=== PATIENT | male | born 1985 | race Caucasian/White ===

== ENCOUNTER 2021-04-18 09:04 | Emergency (ER) | payer SELFPAY ==
[~2021-04-18] VITALS: Ht 177.8 cm; Wt 95.4 kg
[2021-04-18 09:09] VITALS: BP 147/89
--- NOTE | 2021-04-18 09:30 | NUR ---
pt sent to ED from for c/o potential tonsillar abscess. pt states head cold for approx. 1 week and now feeling pain bilaterally in throat/tonsils. pt denies N/V/D or fever. pt a&o, resps even and unlabored, vss, nadn. call light in reach.
--- NOTE | 2021-04-18 09:37 | NUR ---
akira Gaxiola at bedside for initial eval/assessment.
[2021-04-18] MEDS ORDERED: DEXAMETHASONE 4 MG/ML, 1ML PO ONE (10:00)
[2021-04-18] MEDS ORDERED: DEXAMETHASONE 4 MG/ML, 1ML ONE (10:02)
--- NOTE | 2021-04-18 10:08 | NUR ---
pt medicated per order, tolerated well. pt a&o, resps even and unlabored, vss, nadn.
[2021-04-18] MEDS ORDERED: PLEASE ENTER ALLERGIES MC SCH (10:30)
[2021-04-18] MEDS ORDERED: DEXAMETHASONE 4 MG/ML, 5ML PO ONE (11:00)
--- NOTE | 2021-04-18 11:00 | NUR ---
pt educated on dc, verbalized udnertsanding. ambulatory to dc desk with steady gait.
== END 2021-04-18 11:02 | disposition home or self-care (01) ==
LOC: ED 10:52
DX: J36 Peritonsillar abscess (principal); I10 Essential (primary) hypertension
CPT/HCPCS: 99283; J1100

== ENCOUNTER 2021-05-15 09:10 | Inpatient (IN) | payer BC ==
[~2021-05-15] VITALS: Ht 177.8 cm; Wt 93.0 kg
--- NOTE | 2021-05-15 09:13 | NUR ---
CALLED FOR PT. PT NOT IN LOBBY
--- NOTE | 2021-05-15 09:44 | NUR ---
Dr Galeano at bedside for evaluation.
--- NOTE | 2021-05-15 09:50 | NUR ---
Cultures taken by dr weiss.
[2021-05-15] MEDS ORDERED: SODIUM CHLORIDE FLUSH 10ML SYR IVF ONE (10:00)
--- NOTE | 2021-05-15 10:00 | NUR ---
IV started, labs drawn from IV. AIDET provided. Pt in NAD.
[2021-05-15 10:08] LABS: BASOPHILS % (AUTO) 0 % (0-1); EOSINOPHILS % (AUTO) 0 % (1-7); LYMPHOCYTES % (AUTO) 13 % (22-44); MEAN CORPUSCULAR HEMOGLOBIN 29.9 pg (27.5-34.5); MEAN CORPUSCULAR HGB CONC 33.4 g/dL (33.2-36.2); MEAN PLATELET VOLUME 7.9 fL (7.4-10.4); MONOCYTES % (AUTO) 11 % (2-9); NEUTROPHILS % (AUTO) 75 % (42-75); PLATELET COUNT 235 x10^3/uL (130-400); RED BLOOD COUNT 5.11 x10^6/uL (4.38-5.82); RED CELL DISTRIBUTION WIDTH 12.7 % (9.4-14.8)
[2021-05-15 10:21] LABS: ALANINE AMINOTRANSFERASE 90 U/L (12-78); ALKALINE PHOSPHATASE 90 U/L (45-117); ANION GAP 6 mmol/L (5-15); BILIRUBIN,TOTAL 0.3 mg/dL (0.2-1.0); CALCIUM 9.7 mg/dL (8.5-10.1); CHLORIDE 103 mmol/L (98-107); CREATININE 0.99 mg/dL (0.7-1.3); TOTAL PROTEIN 8.7 g/dL (6.4-8.2)
[2021-05-15] MEDS ORDERED: OMNIPAQUE 350 MG/ML, 100ML BOTTLE ONE (10:44)
--- NOTE | 2021-05-15 10:49 | NUR ---
Back from CT, no change in assessment. AIDET provided.
[2021-05-15] MEDS ORDERED: DEXAMETHASONE 4 MG/ML, 1ML IVPush ONE (11:30)
[2021-05-15] MEDS ORDERED: AMPICILLIN/SULBACTAM 3 GM in SODIUM CHLORIDE 0.9% 100 ML IV ONE (11:30)
[2021-05-15] MEDS ORDERED: DEXAMETHASONE 4 MG/ML, 1ML ONE (11:34)
--- NOTE | 2021-05-15 11:51 | NUR ---
IV per order, waiting for medical bed. Pt agrees with POC and admission. AIDET
[2021-05-15] MEDS ORDERED: LISI-170 PO (11:52)
--- NOTE | 2021-05-15 11:56 | NUR ---
ENT evaluating pt now.
[2021-05-15] MEDS ORDERED: hydrALAzine 20 MG/ML, 1ML ONE (12:15)
[2021-05-15] MEDS: hydrALAzine 20 MG/ML, 1ML IVPush PRN ×2 (12:17→12:21)
--- NOTE | 2021-05-15 12:18 | NUR ---
Also takes citalapram 40mg po hs.
--- NOTE | 2021-05-15 12:21 | NUR ---
Hydralazine held 2nd to normalized b/p, pt c/o 6/10 pain but refuses any pain medications. Hospitalist was at bedside for orders. Held lovenox as unlcear when pt going to surgery. KATHRINEET
[2021-05-15] MEDS: ENOXAPARIN 40 MG/0.4 ML SQ SCH (12:22)
[2021-05-15] MEDS ORDERED: BISACODYL 10 MG SUPP PR PRN (12:30)
[2021-05-15] MEDS ORDERED: ACETAMINOPHEN 325 MG TABLET PO PRN (12:30)
[2021-05-15] MEDS ORDERED: ONDANSETRON 2MG/ML, 2ML IVPush PRN (12:30)
[2021-05-15] MEDS ORDERED: morphine SULFATE 10 MG/ML, 1ML IVPush PRN (12:30)
[2021-05-15] MEDS ORDERED: IBUPROFEN 800 MG TABLET PO PRN (12:30)
[2021-05-15] MEDS ORDERED: POLYETHYLENE GLYCOL 17 GM PACKET PO PRN (12:30)
[2021-05-15] MEDS ORDERED: LABETALOL 5MG/ML, 20ML IVPush PRN (12:30)
[2021-05-15] MEDS ORDERED: ENALAPRILAT 1.25 MG/ML, 2ML IVPush PRN (12:30)
[2021-05-15] MEDS ORDERED: DOCUSATE 100 MG CAPSULE PO PRN (12:30)
[2021-05-15] MEDS ORDERED: ONDANSETRON ODT 4 MG PO PRN (12:30)
[2021-05-15] MEDS ORDERED: CITA40TA5 PO (12:34)
[2021-05-15] MEDS: HYDROcodone/APAP 5/325 TABLET PO PRN (15:48)
[2021-05-15 15:51] VITALS: BP 139/83
[2021-05-15] MEDS: AMPICILLIN/SULBACTAM 3 GM in SODIUM CHLORIDE 0.9% 100 ML IV SCH (18:00)
[2021-05-15 21:52] VITALS: BP 137/84
[2021-05-15] MEDS: CITALOPRAM 20 MG TABLET PO SCH (22:44)
[2021-05-15] MEDS: LISINOPRIL 20 MG TABLET PO SCH (22:44)
[2021-05-15] MEDS: FAMOTIDINE 20 MG/2 ML IVPush SCH (22:45)
[2021-05-16] MEDS: AMPICILLIN/SULBACTAM 3 GM in SODIUM CHLORIDE 0.9% 100 ML IV SCH ×5 (00:37→23:38)
[2021-05-16 02:36] VITALS: BP 126/68
[2021-05-16] MEDS: HYDROcodone/APAP 5/325 TABLET PO PRN (02:44)
[2021-05-16 06:01] LABS: BASOPHILS % (AUTO) 0 % (0-1); EOSINOPHILS % (AUTO) 0 % (1-7); LYMPHOCYTES % (AUTO) 13 % (22-44); MEAN CORPUSCULAR HEMOGLOBIN 29.6 pg (27.5-34.5); MEAN CORPUSCULAR HGB CONC 33.1 g/dL (33.2-36.2); MEAN PLATELET VOLUME 8.2 fL (7.4-10.4); MONOCYTES % (AUTO) 9 % (2-9); NEUTROPHILS % (AUTO) 78 % (42-75); PLATELET COUNT 246 x10^3/uL (130-400); RED CELL DISTRIBUTION WIDTH 12.7 % (9.4-14.8)
[2021-05-16 06:10] LABS: ANION GAP 6 mmol/L (5-15); CALCIUM 9.4 mg/dL (8.5-10.1); CHLORIDE 102 mmol/L (98-107); CREATININE 0.87 mg/dL (0.7-1.3)
[2021-05-16 08:08] VITALS: BP 122/67
[2021-05-16] MEDS: FAMOTIDINE 20 MG/2 ML IVPush SCH (08:41)
[2021-05-16] MEDS ORDERED: DEXAMETHASONE 4 MG/ML, 1ML IVPush ONE (09:00)
[2021-05-16] MEDS: ENOXAPARIN 40 MG/0.4 ML SQ SCH ×2 (12:05→22:10)
[2021-05-16 13:08] VITALS: BP 129/76
[2021-05-16 13:16] LABS: ALANINE AMINOTRANSFERASE 85 U/L (12-78); ALBUMIN 3.6 g/dL (3.4-5.0)
[2021-05-16 13:18] LABS: ALKALINE PHOSPHATASE 88 U/L (45-117); BILIRUBIN,TOTAL 0.2 mg/dL (0.2-1.0); TOTAL PROTEIN 8.1 g/dL (6.4-8.2)
[2021-05-16 13:19] LABS: BILIRUBIN, DIRECT < 0.1 mg/dL (0.1-0.2); BILIRUBIN,INDIRECT 0.1 mg/dL (0.0-2.0)
[2021-05-16] MEDS ORDERED: PICC FLUSH PROTOCOL XX PRN (15:30)
[2021-05-16] MEDS ORDERED: AMPICILLIN/SULBACTAM 3 GM in SODIUM CHLORIDE 0.9% 100 ML IV SCH (18:00)
[2021-05-16 19:05] VITALS: BP 126/52
[2021-05-16] MEDS: CITALOPRAM 20 MG TABLET PO SCH (22:10)
[2021-05-16] MEDS: FAMOTIDINE 20 MG TABLET PO SCH (22:10)
[2021-05-16] MEDS: LISINOPRIL 20 MG TABLET PO SCH (22:10)
[2021-05-17 00:57] VITALS: BP 119/62
[2021-05-17] MEDS: AMPICILLIN/SULBACTAM 3 GM in SODIUM CHLORIDE 0.9% 100 ML IV SCH (05:26)
[2021-05-17 05:43] LABS: BASOPHILS % (AUTO) 0 % (0-1); EOSINOPHILS % (AUTO) 0 % (1-7); LYMPHOCYTES % (AUTO) 21 % (22-44); MEAN CORPUSCULAR HEMOGLOBIN 29.7 pg (27.5-34.5); MEAN CORPUSCULAR HGB CONC 33.4 g/dL (33.2-36.2); MEAN PLATELET VOLUME 8.2 fL (7.4-10.4); MONOCYTES % (AUTO) 8 % (2-9); NEUTROPHILS % (AUTO) 71 % (42-75); PLATELET COUNT 244 x10^3/uL (130-400); RED BLOOD COUNT 4.62 x10^6/uL (4.38-5.82); RED CELL DISTRIBUTION WIDTH 12.7 % (9.4-14.8)
[2021-05-17 05:50] LABS: ALANINE AMINOTRANSFERASE 76 U/L (12-78); ALBUMIN 3.1 g/dL (3.4-5.0); ANION GAP 5 mmol/L (5-15); CALCIUM 8.9 mg/dL (8.5-10.1); CHLORIDE 103 mmol/L (98-107); CREATININE 0.83 mg/dL (0.7-1.3)
[2021-05-17 05:53] LABS: ALKALINE PHOSPHATASE 65 U/L (45-117); BILIRUBIN,TOTAL 0.2 mg/dL (0.2-1.0); TOTAL PROTEIN 7.3 g/dL (6.4-8.2)
[2021-05-17 07:40] VITALS: BP 142/73
[2021-05-17] MEDS: FAMOTIDINE 20 MG TABLET PO SCH ×2 (09:00→21:14)
[2021-05-17] MEDS: ERTAPENEM 1 GM in SODIUM CHLORIDE 0.9% 50 ML IV SCH ×2 (11:35→12:34)
[2021-05-17 12:06] VITALS: BP 138/83
[2021-05-17 20:12] VITALS: BP 116/70
[2021-05-17] MEDS: LISINOPRIL 20 MG TABLET PO SCH (21:14)
[2021-05-17] MEDS: ENOXAPARIN 40 MG/0.4 ML SQ SCH (21:15)
[2021-05-17] MEDS: CITALOPRAM 20 MG TABLET PO SCH (21:15)
[2021-05-18 01:58] VITALS: BP 116/67
[2021-05-18 06:07] LABS: BASOPHILS % (AUTO) 1 % (0-1); EOSINOPHILS % (AUTO) 1 % (1-7); LYMPHOCYTES % (AUTO) 45 % (22-44); MEAN CORPUSCULAR HEMOGLOBIN 30.1 pg (27.5-34.5); MEAN PLATELET VOLUME 7.7 fL (7.4-10.4); MONOCYTES % (AUTO) 10 % (2-9); NEUTROPHILS % (AUTO) 43 % (42-75); PLATELET COUNT 243 x10^3/uL (130-400); RED BLOOD COUNT 4.78 x10^6/uL (4.38-5.82); RED CELL DISTRIBUTION WIDTH 12.9 % (9.4-14.8)
[2021-05-18 06:15] LABS: ANION GAP 6 mmol/L (5-15); CHLORIDE 104 mmol/L (98-107)
[2021-05-18 06:16] LABS: CREATININE 0.84 mg/dL (0.7-1.3)
[2021-05-18 07:30] VITALS: BP 110/67
[2021-05-18] MEDS ORDERED: IBUP-1223 PO (09:06)
[2021-05-18] MEDS: FAMOTIDINE 20 MG TABLET PO SCH (09:37)
[2021-05-18] MEDS: ERTAPENEM 1 GM in SODIUM CHLORIDE 0.9% 50 ML IV SCH (09:37)
[2021-05-18 12:34] VITALS: BP 131/74
== END 2021-05-18 12:45 | disposition home or self-care (01) | DRG 153 ==
LOC: ED 09:19 → 4NE 12:03
PROVIDERS: ADMIT Family Medicine; ATTEND Family Medicine
PROC: 02HV33Z Insertion of Infusion Device into Superior Vena Cava, Percutaneous Approach (ICD-10-PCS; principal; 2021-05-16)
PROC: B548ZZA Ultrasonography of Superior Vena Cava, Guidance (ICD-10-PCS; 2021-05-16)
DX: J36 Peritonsillar abscess (principal); E87.1 Hypo-osmolality and hyponatremia; R65.10 Systemic inflammatory response syndrome (SIRS) of non-infectious origin without acute organ dysfunction; F41.8 Other specified anxiety disorders; G47.33 Obstructive sleep apnea (adult) (pediatric); J35.01 Chronic tonsillitis; J03.90 Acute tonsillitis, unspecified; Z20.822 Contact with and (suspected) exposure to COVID-19; I10 Essential (primary) hypertension; Z91.013 Allergy to seafood
CPT/HCPCS: 36415; 36573; 70491; 80048; 80053; 80076; 85025; 87081; 87880; 96361; 96374; G0378; J0295; J1100; J1335; J1650; Q9967; U0005; C1751; J0360; U0003

== ENCOUNTER 2021-05-23 05:52 | Observation (INO) | payer BC, OTHER ==
[~2021-05-23] VITALS: Ht 177.8 cm; Wt 97.7 kg
[~2021-05-23 05:52] MED LIST: CITA40TA5 PO; IBUP-1223 PO; LISI-170 PO
[2021-05-23] MEDS ORDERED: CHLORHEXIDINE 15 ML UDC PO ONE (06:30)
[2021-05-23] MEDS ORDERED: LACTATED RINGERS 1,000 ML IV SCH (06:30)
[2021-05-23] MEDS ORDERED: CHLORHEXIDINE 15 ML UDC ONE (06:30)
[2021-05-23 06:33] VITALS: BP 121/76
[2021-05-23] MEDS ORDERED: ertapenem IV (06:41)
[2021-05-23] MEDS ORDERED: OXYMETAZOLINE NASAL SPRAY 0.05%,30ML ONE (06:53)
[2021-05-23] MEDS ORDERED: MIDAZOLAM 1 MG/ML, 2ML ONE (07:19)
[2021-05-23] MEDS ORDERED: FENTANYL PF 250 MCG/5ML ONE (07:19)
[2021-05-23] MEDS ORDERED: CEFAZOLIN 1,000 MG ONE (07:38)
[2021-05-23] MEDS ORDERED: DEXAMETHASONE 4 MG/ML, 1ML ONE (07:38)
[2021-05-23] MEDS ORDERED: ONDANSETRON 2MG/ML, 2ML ONE (07:38)
[2021-05-23] MEDS ORDERED: PROPOFOL 10 MG/ML, 20ML ONE (07:38)
[2021-05-23] MEDS ORDERED: SUCCINYLCHOLINE 20 MG/ML, 10ML ONE (07:38)
[2021-05-23] MEDS ORDERED: EPHEDRINE 50 MG/ML, 1ML ONE (07:38)
[2021-05-23] MEDS ORDERED: ROCURONIUM 10 MG/ML,10ML ONE (07:38)
[2021-05-23] MEDS ORDERED: ONDANSETRON 2MG/ML, 2ML IVPush PRN (08:30)
[2021-05-23] MEDS ORDERED: hydrALAzine 20 MG/ML, 1ML IV PRN (08:30)
[2021-05-23] MEDS ORDERED: HYDROmorphone 1 MG/ML, 1ML INJ IV PRN (08:30)
[2021-05-23] MEDS ORDERED: METOCLOPRAMIDE 5 MG/ML, 2ML IV PRN (08:30)
[2021-05-23] MEDS ORDERED: ALBUTEROL SULFATE 2.5 MG/3 ML NPPB PRN (08:30)
[2021-05-23] MEDS ORDERED: KETOROLAC 30 MG/1 ML IV PRN (08:30)
[2021-05-23] MEDS ORDERED: DIAZEPAM 5 MG/ML, 2ML IV PRN ×2 (08:30)
[2021-05-23] MEDS ORDERED: LABETALOL 5MG/ML, 20ML IV PRN (08:30)
[2021-05-23] MEDS ORDERED: PROMETHAZINE 25 MG/ML, 1ML IV PRN (08:30)
[2021-05-23] MEDS ORDERED: OXYcodone 5 MG/5 ML ORAL.SOL UDC PO PRN (08:30)
[2021-05-23] MEDS ORDERED: MEPERIDINE/PF 25MG/0.5ML IVPush PRN (08:30)
[2021-05-23] MEDS ORDERED: FENTANYL PF 100 MCG/2ML ONE (08:45)
[2021-05-23] MEDS: FENTANYL PF 100 MCG/2ML IV PRN ×2 (08:47→08:56)
[2021-05-23] MEDS ORDERED: OXYcodone 5 MG/5 ML ORAL.SOL UDC ONE (08:57)
[2021-05-23] MEDS ORDERED: IBUPROFEN 200 MG TABLET PO PRN (10:30)
[2021-05-23] MEDS ORDERED: ACETAMINOPHEN 325 MG TABLET PO PRN (10:30)
[2021-05-23] MEDS ORDERED: AMPICILLIN/SULBACTAM 3 GM in SODIUM CHLORIDE 0.9% 100 ML IV SCH (11:00)
[2021-05-23] MEDS: LACTATED RINGERS 1,000 ML IV SCH ×2 (12:06→21:44)
[2021-05-23] MEDS: OXYcodone 5 MG/5 ML ORAL.SOL UDC PO PRN ×2 (13:24→21:15)
[2021-05-23] MEDS ORDERED: CEFTRIAXONE 2 GM in DEXTROSE 5% 50 ML IVPB SCH (14:00)
[2021-05-23 14:40] VITALS: BP 125/76
[2021-05-23] MEDS ORDERED: LISINOPRIL 20 MG TABLET PO SCH (21:00)
[2021-05-23] MEDS ORDERED: CITALOPRAM 20 MG TABLET PO SCH (21:00)
[2021-05-23 21:10] VITALS: BP 122/75
[2021-05-24 00:25] VITALS: BP 112/59
[2021-05-24] MEDS: OXYcodone 5 MG/5 ML ORAL.SOL UDC PO PRN ×2 (06:30→12:34)
[2021-05-24 07:53] VITALS: BP 109/62
[2021-05-24] MEDS: LACTATED RINGERS 1,000 ML IV SCH (08:00)
[2021-05-24 12:25] VITALS: BP 87/44
[2021-05-24] MEDS ORDERED: ERTAPENEM 1 GM in SODIUM CHLORIDE 0.9% 50 ML IV SCH (12:30)
[2021-05-24 13:00] VITALS: BP 123/78
[2021-05-24] MEDS ORDERED: OXYC5TAB98 PO (13:44)
== END 2021-05-24 14:00 | disposition home or self-care (01) ==
LOC: OUT 05:52 → 4NE 09:37 → OUT 15:51 → 4NE 15:51
PROVIDERS: ADMIT Otolaryngology; ATTEND Otolaryngology
DX: J35.01 Chronic tonsillitis (principal); Z20.822 Contact with and (suspected) exposure to COVID-19; J31.0 Chronic rhinitis; G47.33 Obstructive sleep apnea (adult) (pediatric); R79.89 Other specified abnormal findings of blood chemistry; F41.8 Other specified anxiety disorders; I10 Essential (primary) hypertension; Z79.899 Other long term (current) drug therapy
CPT/HCPCS: 42826; 87635; 88304; 96361; 96365; 96367; G0378; J0696; J1335; J2250; J3010; J7120; J0690; J1100; J2405; J2704; J0330